=== PATIENT | female | born 1940 | race Caucasian/White ===

== ENCOUNTER 2016-06-16 13:00 | Emergency (ER) | payer MEDICARE, SELFPAY ==
[2016-06-16 13:19] VITALS: BP 142/60
--- NOTE | 2016-06-16 13:43 | EDM.PDOC ---
ED HPI NEURO - General Chief Complaint: Neurological Problem Stated Complaint: RIGHT SIDE OF FACE DROOPING Time Seen by Provider: 06/16/16 13:18 Source of Information: Reports: Patient History Limitations: Reports: No limitations - History of Present Illness INITIAL COMMENTS - FREE TEXT/NARRATIVE: Patient is a 75 room female who presents to the ED complaining of right sided facial droop. Patient states symptoms started approximately 5 days ago and have progressively gotten worse. Patient has a history of shingles. She denies any vision changes, headache, difficulty swallowing, weakness, numbness or tingling, shortness of breath, chest pain, fever/chills, neck stiffness, or any additional complaints. There's been no known head trauma. She's denies any previous history of shingles, TIA/stroke. Past history positive for gout, hypercholesterolemia, and hypertension. 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) (none stated) - Related Data Allergies/ADRs: Allergies Allergy/AdvReac Type Severity Reaction Status Date / Time No Known Allergies Allergy Verified 06/16/16 13:09 Home Meds: Home Meds Prednisone [IMW: predniSONE] 60 mg PO ASDIRECTED #22 tab 06/16/16 [Rx] valACYclovir HCl [valACYclovir] 1,000 mg PO TID #21 tablet 06/16/16 [Rx] Past Medical History Cardiovascular History: Reports: High cholesterol, Hypertension Musculoskeletal History: Reports: Gout Social & Family History - Tobacco Use Smoking Status *Q: Current Every Day Smoker Years of Tobacco use: 55 Packs/Tins Daily: 0.5 ED ROS GENERAL - Review of Systems Review Of Systems: See Below Constitutional: Reports: no symptoms HEENT: Denies: Vision change Respiratory: Denies: Shortness of Breath, Pleuritic Chest Pain, Cough, Sputum Cardiovascular: Denies: Chest pain, Dyspnea on exertion, Lightheadedness, Palpitations, PND, Syncope GI/Abdominal: Denies: Abdominal pain, Nausea, Vomiting : Reports: no symptoms Musculoskeletal: Denies: neck pain, back pain Neurological: Reports: Change in Speech (2nd to facial droo). Denies: Confusion , Dizziness, Headache, Numbness, Paresthesia, Seizure, Syncope, Tingling, Difficulty Walking, Weakness, Gait Disturbance Psychiatric: Reports: No symptoms ED EXAM, NEURO - Physical Exam Exam: See Below Exam Limited By: No limitations General Appearance: alert, WD/WN, no apparent distress Eye Exam: bilateral eye: EOMI, PERRL Ears: normal external exam, normal canal, hearing grossly normal, normal TMs Nose: normal inspection Throat/Mouth: Normal inspection, Normal oropharynx, Normal voice, No airway compromise Head Exam: atraumatic, normocephalic Neck: normal inspection, supple, non-tender, full range of motion Respiratory/Chest: no respiratory distress, lungs clear, normal breath sounds, no accessory muscle use, chest non-tender Cardiovascular: normal peripheral pulses, regular rate, rhythm, no murmur GI/Abdominal: normal bowel sounds, soft, non tender, no organomegaly, no distention Neurological: alert, normal mood/affect, normal dorsiflexion, CN II-XII intact ( Except for facial droop to the right side. Proptosis or right eye and loss of nasal labial fold. Findings consistent with bells palsy. Confirmedby Dr. Arita.), normal plantar flexion, normal gait, normal reflexes, no motor/ sensory deficits, oriented x 3, other (Romberg intact. No pronator drift. No weakness to upper/lower extremities. ) Back Exam: normal inspection Extremities: normal inspection, normal range of motion, non-tender, no pedal edema, normal capillary refill Psychiatric: normal affect, normal mood Skin Exam: Warm, Dry, Intact, Normal color, No rash Course - Vital Signs Last Recorded V/S: Last Vital Signs Temp 98.1 F 06/16/16 13:09 Pulse 74 06/16/16 13:09 Resp 16 06/16/16 13:09 BP 142/60 H 06/16/16 13:09 Pulse Ox 95 06/16/16 13:09 - Orders/Labs/Meds Meds: Medications Discontinued Medications Generic Name Dose Route Start Last Admin Trade Name Freq PRN Reason Stop Dose Admin Prednisone 60 mg 06/16/16 13:45 06/16/16 14:08 Prednisone PO 06/16/16 13:46 60 mg ONETIME ONE Administration Valacyclovir HCl 1,000 mg 06/17/16 13:46 Valtrex PO 06/17/16 13:47 DAILY ONE Valacyclovir HCl 1,000 mg 06/16/16 14:00 06/16/16 14:08 Valtrex PO 06/16/16 14:01 1,000 mg DAILY ONE Administration - Re-Assessments/Exams Free Text/Narrative Re-Assessment/Exam: Upon admission to the ED a stroke alert was called with the patient experiencing right-sided facial droop. Patient stated symptoms started approximately 5 days ago and have progressively worsened. She denies headache, vision changes, difficulty swallowing, weakness to upper/lower extremities, numbness or tingling, chest pain, shortness of breath, nausea/vomiting, or any additional concerning symptoms. She does have a history of shingles in the past. Examination elicited facial droop involving the forehead. No other focal neurological deficits noted. 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 This was confirmed by Dr. Arita. No additional testing is required at this time. 06/16/16 13:46 ordered prednisone 60 mg by mouth and also valacyclovir 1000mgs PO. Will discharge patient home with instructions for Alcantar's palsy. Prescriptions for prednisone and valacyclovir provided. Departure - Departure Time of Disposition: 13:47 Disposition: Home, Self-Care 01 Condition: good Clinical Impression: Right-sided Alcantar's palsy Prescriptions: Prednisone [IMW: predniSONE] 60 mg PO ASDIRECTED #22 tab valACYclovir HCl [valACYclovir] 1,000 mg PO TID #21 tablet Instructions: Alcantar Palsy Referrals: Cherry Gillespie NP [Primary Care Provider] - Forms: ED Department Discharge Additional Instructions: Take the prednisone and valacyclovir as prescribed. In addition if you experience dryness to right eye can utilize [id number] eyedrops to moisten. If this occurs please followup with your eye doctor for further treatment. Symptoms may persist for quite some time. Will have followup with your PCP in one week. Return back to ED for any new or worsening symptoms.
[2016-06-16] MEDS ORDERED: predniSONE 20 MG Tab PO ONE (13:45)
[2016-06-16] MEDS ORDERED: valACYclovir 500 MG Tab PO ONE (14:00)
[2016-06-17] MEDS ORDERED: valACYclovir 1,000 MG Tab PO ONE (13:46)
== END 2016-06-16 14:19 | disposition home or self-care (01) ==
LOC: JD.ED 13:00
DX: G51.0 Bell's palsy (principal); Z79.899 Other long term (current) drug therapy; F17.210 Nicotine dependence, cigarettes, uncomplicated
CPT/HCPCS: 99284; A9270; 99283